=== PATIENT | male | born 1990 | race Caucasian/White ===

== ENCOUNTER 2023-02-07 15:47 | Emergency (ER) | payer OTHER ==
[2023-02-07] MEDS ORDERED: Fluorescein 1 MG Ophth Strip EYELF ONE (16:41)
[2023-02-07] MEDS ORDERED: Proparacaine 0.5% Ophth Soln 15 ML Bottle EYELF ONE (16:41)
[2023-02-07] MEDS ORDERED: Erythromycin Base 0.5% Ophth Oint 1 GM Tube EYELF ONE (17:31)
[2023-02-07] MEDS ORDERED: Ketorolac 0.5% Ophth Soln 5 ML Bottle EYELF ONE (17:33)
== END 2023-02-07 18:30 | disposition home or self-care (01) ==
LOC: JD.ED 15:47
DX: H18.822 Corneal disorder due to contact lens, left eye (principal); Z88.0 Allergy status to penicillin
CPT/HCPCS: 99283; A9270; 99282; J3490